=== PATIENT | male | born 1975 | race Caucasian/White ===

== ENCOUNTER 2016-07-16 20:00 | Inpatient (IN) | payer OTHER ==
--- NOTE | ~2016-07-16 | PA ---
Unit #: [id number] #: [id number] Patient: CEZAR STERLING [id number] [facility] [address] [place] [address] [id number] MR#: [id number] NAME: CEZAR STERLING ROOM: P211 Age: 41 Sex: M Admission Date: 07/16/2016 : 1975 Date of Assessment: 07/17/2016 Attending Physician: Yung Mcintyre M.D. Admitting Physician: Yung Mcintyre M.D. Primary Care Physician: Primary Care Physician No PSYCHIATRIC ASSESSMENT INFORMANTS The patient's reliability, fair; chart reliability, good. CHIEF COMPLAINT Alcohol abuse. HISTORY OF PRESENT ILLNESS Mr. Malcolm is a 41-year-old male, presented with the above-mentioned complaint. The patient reported needing help with detox from alcohol. The patient reported drinking 1 pint or more of vodka for the last 3 years. The patient reported began drinking after his brother from drug overdose. The patient reported minimal support system. The patient reported difficulty with coping, turns to alcohol for relief. The patient reported issues with sleep and appetite. The patient reported that he is motivated for treatment. The patient's BAL was 0.188 and CIWA score 8 at the time of admission. The patient reported tobacco use, age of onset 15; alcohol, age of onset 14; marijuana, age of onset 15; opioid, age of onset 17. The patient reported longest period of sobriety 5 weeks, last period of sobriety unknown. The patient reported no history of blackout, IV drug abuse, history of HIV, hepatitis, but withdrawal symptoms such as depressed mood, anxiety, poor sleep, restlessness. The patient needing inpatient admission at this time for psychiatric stabilization. PAST PSYCHIATRIC HISTORY Unknown for any history of any previous treatment. No history of any suicide attempt. FAMILY HISTORY AND SOCIAL HISTORY The patient has a poor support system. No history of any abuse. No legal charges. Family psychiatric illness is remarkable for history of substance abuse in brother and other family members. MEDICAL HISTORY Remarkable for history of hypertension and Crohn disease. MEDICATION HISTORY None. ALLERGIES No known drug allergies. SUBSTANCE ABUSE HISTORY Please see above. Unit #: [id number] #: [id number] Patient: ASHER,CEZAR REVIEW OF SYSTEMS HEENT: Eyes, clear. Ears, nose, mouth, and throat; clear. CARDIOVASCULAR: Unremarkable. RESPIRATORY: Unremarkable. GI: Unremarkable. : Unremarkable. SKIN: Unremarkable. LYMPH NODE: Unremarkable. NEUROLOGIC: Unremarkable. ENDOCRINE: Unremarkable. HEMATOLOGIC: Unremarkable. ALLERGIC/IMMUNOLOGIC: Unremarkable. MUSCULOSKELETAL: Muscle strength and tone, no atrophy or abnormal movement. Gait normal. MENTAL STATUS EXAMINATION CONSTITUTIONAL: Measurement of vital signs; temperature 98.4, pulse 108, respirations 18, blood pressure 146/93. Height 5 feet 9 inches, weight 228 pounds. GENERAL APPEARANCE: The patient dressed casually. The patient did not show any facial deformity. MUSCULOSKELETAL: Muscle strength and tone, no atrophy or abnormal movement. Gait normal. PSYCHIATRIC EXAMINATION Description of speech; regular rate, normal volume, normal articulation, coherent. Description of thought process, goal directed. Description of association, intact. Description of abnormal psychotic thinking; the patient denied any hallucination or delusions, but mood lability, substance abuse. Description of the patient's judgment; concerning everyday activity, poor. Social situation, poor. Concerning psychiatric condition, poor. Complete mental status examination; oriented in time, place, and person. Recent and remote memory, fair. Language, fair. Fund of knowledge, fair. Vocabulary, intact. Mood and affect, sad and dysphoric. Insight and judgment, fair to poor. ASSETS AND LIABILITIES Assets; the patient is articulate, able to take care of his ADL. Liability; history of depression, substance abuse. ADMITTING DIAGNOSES Psychiatric: Alcohol use disorder, severe, F10.20; mood disorder, not otherwise specified, F32.9. Secondary diagnosis: Deferred. Medical diagnoses: Hypertension and Crohn disease. Stressors: Psychosocial stressors. PSYCHIATRIC PLAN AND TREATMENT GOAL 1. Advised to admit the patient on the inpatient unit. Provide safe, supportive, and structured environment. 2. Ordered labs; CBC, CMP, UA, and UDS. 3. Precaution for self-harm, detox protocol, and detox monitoring. Unit #: [id number] #: [id number] Patient: CEZAR STERLING 4. Plan to consider medication such as SSRI for depression. The patient to attend all the programming with group therapy, individual therapy, chemical dependency group. Treatment goal to attain euthymic mood, gain insight into his problem, and learn coping skills. DISCHARGE PLAN Plan to stabilize the patient and consider followup in outpatient program. ESTIMATED LENGTH OF STAY 5 days. Dictated by... Preston Alexander/jared TD: 07/18/2016 01:23 JOB #: [id number] PSYCHIATRIC ASSESSMENT Page 1 of 1 X Yung Mcintyre MD PSYCHIATRIC ASSESSMENT
--- NOTE | ~2016-07-16 | PN ---
Unit #: [id number] #: [id number] Patient: CEZAR STERLING [id number] [facility] [address] [place] [address] [id number] I MR#: [id number] NAME: CEZAR STERLING ROOM: P211 Age: 41 Sex: M Admission Date: 07/16/2016 : 1975 Attending Physician: Yung Mcintyre M.D. Admitting Physician: Preston Alexander PROGRESS NOTES DATE OF SERVICE: 07/18/2016 DISCUSSION Cezar is a 41-year-old male, seen on 07/18/2016. The patient interviewed, chart reviewed, and obtained information from nursing staff. The patient was able to maintain safe behavior. Currently, on trazodone and Celexa. Making progress. No side effects from medication. REVIEW OF SYSTEMS Complete review of systems unremarkable. MENTAL STATUS EXAMINATION General appearance, the patient dressed casually. Attention span and concentration, fair. Oriented in time, place, and person. Mood and affect, sad and dysphoric. Speech, monotone. Thought process, concrete. The patient denied any thoughts of harming self or others or any psychotic symptom. Recent and remote memory, poor. Insight and judgment, poor. DIAGNOSES 1. Mood disorder, not otherwise specified. 2. Alcohol use disorder, severe. ASSESSMENT/PLAN Advised to continue with current medication and therapeutic protocol. If needed, consider further adjustment of medication. Dictated by... Preston Alexander/jared TD: 07/19/2016 00:03 JOB #: [id number] Unit #: [id number] #: [id number] Patient: CEZAR STERLING PROGRESS NOTES Page 1 of 1 X Yung Mcintyre MD PROGRESS NOTE
--- NOTE | ~2016-07-16 | DS ---
Unit #: [id number] #: [id number] Patient: CEZAR STERLING [id number] [facility] [address] [place] [address] [id number] MR#: [id number] NAME: CEZAR STERLING ROOM: [facility] Age: 41 Sex: M Admission Date: 07/16/2016 : 1975 Discharge Date: 07/19/2016 Attending Physician: Yung Mcintyre M.D. Primary Care Physician: Primary Care Physician No DISCHARGE SUMMARY REASON FOR ADMISSION Alcohol abuse and suicidal ideation. DIAGNOSTIC STUDIES LABORATORY RESULTS: Unremarkable. HOSPITAL COURSE The patient was admitted to inpatient unit on 07/16/2016 and discharged on 07/19/2016. The patient was treated on the inpatient unit with chemical dependency group, group therapy, expressive therapy, medication management, and structured milieu. The patient was responsive to treatment and also continued on Celexa and Desyrel. The patient was subsequently discharged with a plan to follow up in outpatient program. DISCHARGE MEDICATIONS Celexa 20 mg daily for depression and Desyrel 50 mg at bedtime for sleep. DISCHARGE DIAGNOSES Psychiatric: 1. Alcohol use disorder, severe, F10.20. 2. Mood disorder, not otherwise specified, F32.9. Secondary diagnosis: Deferred. Medical diagnoses: Hypertension, Crohn disease. Stressors: Psychosocial stressors. DISCHARGE INSTRUCTIONS The patient is to follow up in outpatient clinic as per social science instructor. CONDITION ON DISCHARGE The patient was pleasant and cooperative. Denied any psychotic symptom or any suicidal ideation. PROGNOSIS Guarded. DIET AND ACTIVITY As tolerated. Dictated by... Yung Mcitnyre M.D. Unit #: [id number] #: [id number] Patient: CEZAR STERLING SZC/modl TD: 07/19/2016 23:51 JOB #: [id number] DISCHARGE SUMMARY Page 1 of 1 X Yung Mcintyre MD X DISCHARGE SUMMARY
--- NOTE | ~2016-07-16 | HP ---
Unit #: [id number] #: [id number] Patient: CEZAR STERLING [id number] [place] [address] [id number] MR#: [id number] NAME: CEZAR STERLING ROOM: P211 Age: 41 Sex: M Admission Date: 07/16/2016 : 1975 Attending Physician: Yung Mcintyre M.D. Admitting Physician: Yung Mcintyre M.D. Primary Care Physician: Primary Care Physician No HISTORY AND PHYSICAL HISTORY OF PRESENT ILLNESS The patient is a 41-year-old male admitted to [address] [place] [address] on 07/16/2016 to detox from alcohol. PAST MEDICAL HISTORY 1. Obesity. 2. Crohn's disease. 3. Hypertension. PAST SURGICAL HISTORY 1. Bowel resection. 2. 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 3. Left shoulder SOCIAL HISTORY He is unemployed. He lives with his mom. He smokes one pack of cigarettes daily and drinks one pint of alcohol per day. FAMILY MEDICAL HISTORY Noncontributory. ALLERGIES Penicillin. CURRENT MEDICATIONS Patient is not on any home medications. REVIEW OF SYSTEMS CONSTITUTIONAL: No fever or chills. HEENT: Denies any sore throat, ear pain or runny nose. CARDIOVASCULAR: Denies chest pain, irregular heart rhythm or palpitations. CHEST: Denies shortness of breath or cough. No hemoptysis. GASTROINTESTINAL: Denies nausea, vomiting, diarrhea or chronic constipation. ENDOCRINE: Denies history of increased thirst or urination. No recent significant weight loss or gain. GENITOURINARY: Denies dysuria, frequency, or hematuria. SKIN: Denies any rashes. HEMATOLOGIC: Denies history of increased bleeding or bruising. MUSCULOSKELETAL: Denies any hot, swollen joints. No generalized muscle pain. NEUROLOGIC: Denies problems with vision or speech. No frequent, severe headaches. No numbness, tingling or weakness in any extremities. Denies Unit #: [id number] #: [id number] Patient: CEZAR STERLING loss of bladder or bowel control. PHYSICAL EXAM GENERAL: He is awake, alert and oriented in no acute distress. VITAL SIGNS: Temperature 98.4, heart rate 108, respiration 18, blood pressure 146/93. HEIGHT: 5'9". WEIGHT: 228 pounds. SKIN: Warm and dry without rash or lesion. HEENT: Normocephalic. TMs not viewed. Oral and nasal passages clear. Conjunctivae clear. PERRLA. EOMs intact. NECK: Supple without lymphadenopathy or thyromegaly. HEART: Regular rate and rhythm without murmur. LUNGS: Clear. ABDOMEN: Soft, nontender. : Not done. EXTREMITIES: No evidence of cyanosis, clubbing or edema. Moves all without focal deficit. NEUROLOGICAL: Grossly within normal limits. Cranial Nerves: II: Visual waters are intact. III, IV AND : Extraocular movements are intact. Pupils are equal, round and reactive to light. V: Facial sensation is grossly normal. VII: Facial movements and expression are normal. VIII: Auditory acuity grossly intact. IX, X: Uvula is midline. Phonation is normal. XI: Patient shrugs shoulders and turns head normally. XII: Tongue protrudes in the midline. Sensory and Motor Function: Sensory and motor sensation is grossly normal. Motor: moves all extremities well. IMPRESSION 1. Psychiatric admission. 2. Obesity. 3. Crohn's disease. 4. Hypertension. 5. Alcohol abuse. RECOMMENDATIONS Psychiatric per psychiatrist. MEDICAL: No contraindication to participate in facility activities. MEDICAL PROGNOSIS Good. MEDICAL CONDITION Stable. Dictated by... Jennifer Perez/mony TD: 07/18/2016 00:41 Unit #: [id number] #: [id number] Patient: CEZAR STERLING JOB #: [id number] HISTORY AND PHYSICAL Page 1 of 1 X DRAKE CHARLES APRN X HISTORY AND PHYSICAL
[2016-07-17 12:19] LABS: BASOPHIL# 0.1 X10e3 (0-0.3); BASOPHIL% 0.6 % (0-2.5); EOSINOPHIL# 0.1 X10e3 (0-0.7); EOSINOPHIL% 1.3 % (0.0-7.0); HEMATOCRIT 48.3 % (38.0-50.0); HEMOGLOBIN 16.1 gm/dL (13.0-16.0); LYMPHOCYTE# 2.7 X10e3 (1.0-3.5); LYMPHOCYTE% 27.9 % (17.0-45.0); MEAN CELL VOLUME 94.7 FL (83-96); MEAN CORPUSCULAR HEMOGLOBIN 31.6 PG (28-34); MEAN CORPUSCULAR HGB CONC 33.4 g/dL (30-36); MEAN PLATELET VOLUME 8.8 FL (6.5-11.5); MONOCYTE# 0.6 X10e3 (0-1.0); MONOCYTE% 6.8 % (3.0-12.0); NEUTROPHIL# 6.1 X10e3 (1.5-7.1); NEUTROPHIL% 63.4 % (40-75); PLATELET COUNT 234 X10e3 (140-420); RED CELL DISTRIBUTION WIDTH 13.9 % (11.0-15.5); WHITE BLOOD COUNT 9.6 X10e3 (4.0-10.5)
[2016-07-17 12:28] LABS: DIFF IND NO
[2016-07-17 12:35] LABS: ALBUMIN SERUM 3.7 g/dL (3.5-5.0); BILIRUBIN,TOTAL 0.5 mg/dL (0.2-2.0); BUN/CREATININE RATIO 17.14; CREATININE SERUM 0.7 mg/dL (0.6-1.4); GLOM FILT RATE Estimated 118.1 mL/min (>60); POTASSIUM 3.8 mmol/L (3.5-5.1); PROTEIN TOTAL SERUM 6.7 g/dL (6.0-8.3)
== END 2016-07-19 11:10 | DRG 897 ==
LOC: P2S 22:04
PROVIDERS: Psychiatry & Neurology Psychiatry
PROC: HZ2ZZZZ Detoxification Services for Substance Abuse Treatment (ICD-10-PCS; principal; 2016-07-17)
DX: F10.20 Alcohol dependence, uncomplicated (principal); K50.90 Crohn's disease, unspecified, without complications; I10 Essential (primary) hypertension; F39 Unspecified mood [affective] disorder; E66.9 Obesity, unspecified; Z88.0 Allergy status to penicillin
CPT/HCPCS: 80053; 85025; 86592